=== PATIENT | female | born 1955 | race Caucasian/White ===

== ENCOUNTER 2017-02-06 07:03 | Day surgery (SDC) | payer BC ==
--- NOTE | ~2017-02-06 | EGD ---
EGD REPORT [facility] [address] [place] [address] NAME: SUSI GLORIA : 57 STATUS : [place] [facility] [place] PAT#: [id number] AGE: 61 ADM/REG DATE : 02/06/17 MR#: [id number] REPORT SERV DATE: 02/06/17 DICTATED BY: SUKUMAR RAYGOZA DATE: 02/06/17 REPORT STATUS : Draft TRANSCRIBED BY: [facility] DATE: 02/06/17 End[facility] Center Patient Name: Susi Gloria Date of : 1955 Attending MD: SUKUMAR RAYGOZA MD Procedure Date No Time: 02/06/2017 Procedure: Colonoscopy Indications: Screening in patient at increased risk: Colorectal cancer in father 60 or older, Last colonoscopy: November 2011 Referring MD: WOODROW PRITCHARD MD Medicines: Propofol per Anesthesia Complications: No immediate complications. Estimated blood loss: None. Procedure: Pre-Anesthesia Assessment: - After reviewing the risks and benefits, the patient was deemed in satisfactory condition to undergo the procedure. - Prior to the procedure, a History and Physical was performed, and patient medications and allergies were reviewed. The patient's tolerance of previous anesthesia was also reviewed. The risks and benefits of the procedure and the sedation options and risks were discussed with the patient. All questions were answered, and informed consent was obtained. Prior Anticoagulants: The patient has taken no previous anticoagulant or antiplatelet agents. ASA Grade Assessment: II - A patient with mild systemic disease. After reviewing the risks and benefits, the patient was deemed in satisfactory condition to undergo the procedure. After I obtained informed consent, the scope was passed under direct vision. Throughout the procedure, the patient's blood pressure, pulse, and oxygen saturations were monitored continuously. The CF [id number] was introduced through the anus and advanced to the cecum, identified by appendiceal orifice and ileocecal valve. The colonoscopy was performed without difficulty. The ileocecal valve and appendiceal orifice were photographed. The patient tolerated the procedure well. The quality of the bowel preparation was excellent. The bowel preparation used was polyethylene glycol (PEG). Scope withdrawal time was greater than 6 minutes. Findings: The perianal and digital rectal examinations were normal. Pertinent negatives include normal sphincter tone. EGD REPORT [address] [address] NAME: SUSI GLORIA : 57 STATUS : [place] [facility] [place] PAT#: [id number] AGE: 61 ADM/REG DATE : 02/06/17 MR#: [id number] REPORT SERV DATE: 02/06/17 DICTATED BY: SUKUMAR RAYGOZA DATE: 02/06/17 REPORT STATUS : Draft TRANSCRIBED BY: [employer] DATE: 02/06/17 Multiple medium-mouthed diverticula were found in the sigmoid colon. The exam was otherwise without abnormality. Impression: - Moderate diverticulosis in the sigmoid colon. - The examination was otherwise normal. Recommendation: - Discharge patient to home (ambulatory). - High fiber diet indefinitely. - Continue present medications. - Repeat colonoscopy in 5 years for screening purposes. - Patient has a contact number available for emergencies. The signs and symptoms of potential delayed complications were discussed with the patient. Return to normal activities tomorrow. Written discharge instructions were provided to the patient. Procedure Code(s): --- Professional --- G0105, Colorectal cancer screening; colonoscopy on individual at high risk Diagnosis Code(s): --- Professional --- K57.30, Diverticulosis of large intestine without perforation or abscess without bleeding Z12.11, Encounter for screening for malignant neoplasm of colon Z80.0, Family history of malignant neoplasm of digestive organs CPT copyright 2013 [employer]. All rights reserved. The codes documented in this report are preliminary and upon superintendent transmission review may be revised to meet current compliance requirements. SUKUMAR RAYGOZA MD 02/06/2017 9:04 AM This report has been signed electronically. Number of Addenda: 0 Note Initiated On: 02/06/2017 8:36 AM Scope Withdrawal Time 0 hours 6 minutes 8 seconds [id number] [place] [id number]
[~2017-02-06 07:03] MED LIST: *DENIES
== END 2017-02-06 23:59 | disposition home or self-care (01) ==
LOC: DMU 07:03
PROVIDERS: Internal Medicine Gastroenterology
PROC: 0DJD8ZZ Inspection of Lower Intestinal Tract, Via Natural or Artificial Opening Endoscopic (ICD-10-PCS; principal; 2017-02-06 08:45)
DX: Z12.11 Encounter for screening for malignant neoplasm of colon (principal); K57.30 Diverticulosis of large intestine without perforation or abscess without bleeding; I10 Essential (primary) hypertension; E78.00 Pure hypercholesterolemia, unspecified; Z80.0 Family history of malignant neoplasm of digestive organs; Z91.013 Allergy to seafood; Z88.2 Allergy status to sulfonamides; Z98.890 Other specified postprocedural states; Z90.89 Acquired absence of other organs; Z98.891 History of uterine scar from previous surgery